=== PATIENT | male | born 1955 | race Caucasian/White ===

== ENCOUNTER 2021-10-20 08:27 | Inpatient (IN) | payer OTHER ==
[2021-10-12 17:27] VITALS: BMI 24.3
[2021-10-20] MEDS: GABAPENTIN 300 MG CAPSULE PO ONE ×2 (08:50→15:15)
[2021-10-20] MEDS: CELECOXIB 200 MG CAPSULE PO ONE ×2 (08:50→15:15)
[2021-10-20] MEDS ORDERED: VANCOMYCIN 1,000 MG VIAL (RESTRICTED TO ID ONLY) ONE ×2 (09:10→10:33)
[2021-10-20] MEDS ORDERED: ceFAZolin SODIUM 1 GM VIAL ONE ×4 (09:10→23:48)
[2021-10-20] MEDS ORDERED: TRANEXAMIC ACID 1000 MG/10 ML VIAL IVPUSH ONE (09:30)
[2021-10-20] MEDS ORDERED: CEFAZOLIN 2 GM in DEXTROSE 5%-WATER - 50 ML IVPB ONE (09:30)
[2021-10-20] MEDS ORDERED: MIDAZOLAM HCL 2 MG/2 ML SINGLE DOSE VIAL ONE ×2 (09:45→10:58)
[2021-10-20] MEDS ORDERED: BUPIVACAINE HCL/PF 0.5% (5 MG/ML) 30 ML VIAL IJ ONE (09:45)
[2021-10-20] MEDS ORDERED: PROPOFOL 20 ML ONE ×4 (10:03→12:49)
[2021-10-20] MEDS ORDERED: BUPIVACAINE HCL 50 ML ONE (10:04)
[2021-10-20] MEDS ORDERED: TRANEXAMIC ACID 1000 MG/10 ML VIAL ONE (10:29)
[2021-10-20] MEDS ORDERED: ONDANSETRON 4 MG/2 ML VIAL ONE (10:50)
[2021-10-20] MEDS ORDERED: DEXAMETHASONE SOD PHOSPHATE 4 MG/1 ML VIAL ONE (10:50)
[2021-10-20] MEDS ORDERED: BUPIVICAINE 0.25%/MORPH PF/KETOROLAC - 51ML DISP.SYRINGE IA ONE (12:30)
[2021-10-20] MEDS ORDERED: MAG HYDROX/AL HYDROX/SIMETH 30 ML UNIT-DOSE CUP PO PRN (13:37)
[2021-10-20] MEDS ORDERED: MAGNESIUM HYDROX 2400MG/30ML ORAL SUSPENSION 30 ML CUP PO PRN (13:37)
[2021-10-20] MEDS ORDERED: ONDANSETRON 4 MG/2 ML VIAL IVPUSH PRN ×2 (13:37→13:47)
[2021-10-20] MEDS ORDERED: LACTATED RINGERS SOLUTION 1,000 ML IV SCH ×2 (13:45→14:00)
[2021-10-20] MEDS ORDERED: oxyCODONE HCL 5 MG TABLET PO PRN ×2 (13:47)
[2021-10-20] MEDS ORDERED: ACETAMINOPHEN 1000 MG/100 ML BAG IVPB ONE (13:47)
[2021-10-20] MEDS ORDERED: FAMOTIDINE 10 MG TABLET PO PRN (13:48)
[2021-10-20] MEDS ORDERED: ACETAMINOPHEN INJECTION 100 ML IVPB ONE (13:59)
[2021-10-20] MEDS ORDERED: DEXTROSE 5%-WATER - 50 ML IVPB ONE ×2 (18:50→23:48)
[2021-10-20] MEDS: CEFAZOLIN 2 GM in DEXTROSE 5%-WATER - 50 ML IVPB SCH (19:03)
[2021-10-20] MEDS: SENNOSIDES/DOCUSATE COMBO (SENNA PLUS) TABLET (UD) PO SCH (21:24)
[2021-10-20] MEDS: ACETAMINOPHEN 500 MG TABLET (FP) PO SCH (21:25)
[2021-10-20] MEDS: oxyCODONE HCL 10 MG SUSTAINED ACTING TABLET PO SCH (21:25)
[2021-10-21] MEDS: CEFAZOLIN 2 GM in DEXTROSE 5%-WATER - 50 ML IVPB SCH ×2 (01:59→10:54)
[2021-10-21] MEDS: ACETAMINOPHEN 500 MG TABLET (FP) PO SCH ×4 (02:54→21:43)
[2021-10-21 08:28] LABS: CALCIUM 8.2 mg/dl (8.5-10); CREATININE 0.9 mg/dl (0.55-1.3)
[2021-10-21] MEDS ORDERED: DEXTROSE 5%-WATER - 50 ML IVPB ONE (10:34)
[2021-10-21] MEDS ORDERED: ceFAZolin SODIUM 1 GM VIAL ONE (10:34)
[2021-10-21] MEDS: MULTIVITAMINS (DAILY MVI) TABLET (FP) PO SCH (10:53)
[2021-10-21] MEDS: ASPIRIN 325 MG TABLET PO SCH ×2 (10:53→21:43)
[2021-10-21] MEDS: SENNOSIDES/DOCUSATE COMBO (SENNA PLUS) TABLET (UD) PO SCH ×2 (10:53→21:43)
[2021-10-21 10:56] LABS: HEMOGLOBIN 11.2 GM/dL (11.7-16.9); MCH 31.1 pg (25.7-33.7); MCHC 33.9 g/dl (32.0-35.9); MEAN CELL VOLUME 91.7 fl (80-96); MEAN PLT VOLUME 7.6 fl (7.5-11.1); PLATELET COUNT 219 10^3/uL (134-434); RDW 12.9 % (11.9-15.9); WHITE BLOOD COUNT 8.1 K/mm3 (4.0-10.0)
[2021-10-21] MEDS: oxyCODONE HCL 10 MG SUSTAINED ACTING TABLET PO SCH ×2 (10:56→21:45)
[2021-10-22] MEDS: ACETAMINOPHEN 500 MG TABLET (FP) PO SCH ×2 (03:00→10:19)
[2021-10-22 10:08] LABS: HEMATOCRIT 30.4 % (35.4-49); HEMOGLOBIN 10.5 GM/dL (11.7-16.9); MCH 31.6 pg (25.7-33.7); MCHC 34.4 g/dl (32.0-35.9); MEAN CELL VOLUME 91.7 fl (80-96); MEAN PLT VOLUME 7.4 fl (7.5-11.1); PLATELET COUNT 200 10^3/uL (134-434); RBC 3.31 M/mm3 (4.00-5.60); WHITE BLOOD COUNT 6.9 K/mm3 (4.0-10.0)
[2021-10-22] MEDS: SENNOSIDES/DOCUSATE COMBO (SENNA PLUS) TABLET (UD) PO SCH (10:18)
[2021-10-22] MEDS: MULTIVITAMINS (DAILY MVI) TABLET (FP) PO SCH (10:18)
[2021-10-22] MEDS: ASPIRIN 325 MG TABLET PO SCH (10:18)
[2021-10-22] MEDS: oxyCODONE HCL 10 MG SUSTAINED ACTING TABLET PO SCH (10:19)
[2021-10-22] MEDS ORDERED: BISACODYL 5 MG TABLET.DR (FP) PO ONE (11:42)
[2021-10-22 13:15] VITALS: BP 102/61; PULSE 81; TEMP 98.6
== END 2021-10-22 17:50 | disposition home or self-care (01) | DRG 301 ==
LOC: FM/S 08:27 → EDSTATUS 09:30 → FM/S 14:55
PROVIDERS: ADMIT Orthopaedic Surgery Sports Medicine; ATTEND Nurse Practitioner Family
PROC: 0SR90JZ Replacement of Right Hip Joint with Synthetic Substitute, Open Approach (ICD-10-PCS; principal; 2021-10-20 10:53)
DX: M16.11 Unilateral primary osteoarthritis, right hip (principal); K59.00 Constipation, unspecified
CPT/HCPCS: 36415; 73502-TC-RT-FY; 80048; 85027; 86850; 86900; 86901; 88305-TC; 88311-TC; 94760; 97116-GP; 97162-GP; C9803-CS; U0003; U0005

== ENCOUNTER 2022-11-16 08:51 | Day surgery (SDC) | payer OTHER ==
[2022-11-13 12:18] VITALS: BMI 24.3
[~2022-11-16 08:51] MED LIST: LACTATED RINGERS SOLUTION 1,000 ML IV SCH; ONDANSETRON 4 MG/2 ML VIAL IVPUSH PRN; oxyCODONE HCL 5 MG TABLET PO PRN
[2022-11-16] MEDS ORDERED: DEXAMETHASONE SOD PHOSPHATE 4 MG/1 ML VIAL ONE (08:59)
[2022-11-16] MEDS ORDERED: ONDANSETRON 4 MG/2 ML VIAL ONE (08:59)
[2022-11-16] MEDS ORDERED: PROPOFOL 40 ML ONE (09:00)
[2022-11-16] MEDS ORDERED: MIDAZOLAM HCL 2 MG/2 ML SINGLE DOSE VIAL ONE (09:00)
[2022-11-16] MEDS ORDERED: BUPIVACAINE HCL/EPINEPHRINE/PF 30 ML VIAL IJ ONE (09:02)
[2022-11-16] MEDS ORDERED: FAMOTIDINE 20 MG/50 ML IVPB 20 MG/50 ML MG IVPB ONE (09:10)
[2022-11-16] MEDS ORDERED: ACETAMINOPHEN INJECTION 100 ML IVPB ONE (09:10)
[2022-11-16] MEDS ORDERED: HYDROmorphone HCL/PF 1 MG/ML VIAL ONE (10:36)
[2022-11-16] MEDS ORDERED: TRANEXAMIC ACID 1000 MG/10 ML VIAL ONE (11:28)
[2022-11-16] MEDS ORDERED: VANCOMYCIN 1,000 MG VIAL (RESTRICTED TO ID ONLY) ONE (12:01)
[2022-11-16 13:31] VITALS: TEMP 97.2
[2022-11-16 14:27] VITALS: BP 130/82; PULSE 78; RESP 18
== END 2022-11-16 15:03 | disposition home or self-care (01) ==
LOC: FASU 08:51
PROVIDERS: ATTEND Orthopaedic Surgery
PROC: 7W07X9Z Osteopathic Treatment of Upper Extremities using Other Method (ICD-10-PCS; 2022-11-16)
PROC: 0XB90ZZ Excision of Left Upper Arm, Open Approach (ICD-10-PCS; principal; 2022-11-16 10:26)
PROC: 0PBJ0ZZ Excision of Left Radius, Open Approach (ICD-10-PCS; 2022-11-16 10:26)
DX: M94.222 Chondromalacia, left elbow (principal); M24.022 Loose body in left elbow; M67.822 Other specified disorders of synovium, left elbow; M24.522 Contracture, left elbow; M61.9 Calcification and ossification of muscle, unspecified
CPT/HCPCS: 73070-TC-LT-FY; 88304-TC; 88311-TC; 94760